=== PATIENT | male | born 1960 | race Caucasian/White ===

== ENCOUNTER → 2019-01-20 | Outpatient (CLI) | payer BC ==
[~2019-01-20] MED LIST: IOHEXOL 350 MG/ML 100ML IJ ONE
--- NOTE | 2019-01-20 10:10 | NUR ---
[facility] PT ARRIVED AT [facility] ALERT ORIENTED 0 DISTRESS V/S OBTAINED
--- NOTE | 2019-01-20 10:10 | NUR ---
IV insertion IV access obtained, via clean sterile technique by inserting 20 gauge catheter at after attempt(s). IV secured properly. No trauma to site. Patient tolerated procedure well.
--- NOTE | 2019-01-20 10:10 | NUR ---
Pre-Op Discharge Summary: See e-MAR for any medications given for this visit. Pre-op orders received and carried out per of EKG, LABS and chest xrays. Patient given a copy of EKG with instructions to go to [facility] out patient for further follow up care. Addendum: 01/20/19 at 1211 by NEDRA HARRISON RN RN [facility] PT DISCHARGED AT 1140
== END | disposition home or self-care (01) ==
LOC: Rad HDHVI 09:55
PROVIDERS: ATTEND Internal Medicine
DX: R94.4 Abnormal results of kidney function studies (principal)
CPT/HCPCS: 36415; 74177; 82565; G0463; Q9967

== ENCOUNTER 2019-04-28 23:35 | Emergency (ER) | payer BC ==
[~2019-04-28] VITALS: Ht 175.3 cm; Wt 71.7 kg
[2019-04-29] MEDS ORDERED: ACCU-CHEK COMFORT CURVE STRIP VI ONE
[2019-04-29 00:11] LABS: Basophils # (auto) 0 uL; Basophils % (auto) 0.3 % (0.0-2.0); Eosinophils # (auto) 0.1 uL; Eosinophils % (auto) 1.2 % (0.0-7.0); Hematocrit 37.2 % (41.0-53.0); Hemoglobin 12.7 g/dL (13.5-17.5); Lymphocytes # (auto) 0.8 uL; Lymphocytes % (auto) 14.1 % (10.0-50.0); Mean Corpuscular Hemoglobin 32.6 pg (28.0-32.0); Mean Corpuscular Hgb Conc. 34.2 g/dL (32.0-36.0); Mean Corpuscular Volume 95.3 fL (80.0-100.0); Monocytes # (auto) 0.5 uL; Neutrophils % (auto) 75.4 % (37.0-80.0); Platelet Count (auto) 165 10^3/uL (140-450); Red Blood Cells 3.91 10^6/uL (4.5-5.90); Red Cell Distribution Width 14.4 % (11.8-14.3); White Blood Cell 5.3 10^3/uL (4.4-10.8)
[2019-04-29 00:29] LABS: Alanine Aminotransferase 303 U/L (16-61); Albumin 2.8 g/dL (3.4-5.0); Anion Gap 10 (5-15); Aspartate Aminotransferase 351 U/L (15-37); BUN/Creatinine Ratio 7.3; Blood Urea Nitrogen 9 mg/dL (7-18); Calcium 8.3 mg/dL (8.5-10.1); Carbon Dioxide 27 mmol/L (21-32); Chloride 100 mmol/L (98-107); GFR African American 77 mL/min; GFR Non-African American 64 mL/min; Glucose 111 mg/dL (74-106); Potassium 3.8 mmol/L (3.5-5.1); Sodium 137 mmol/L (136-145)
[2019-04-29 00:32] LABS: Alkaline Phosphatase 261 U/L (45-117); Bilirubin, Total 0.8 mg/dL (0.2-1.0); Total Protein 7.2 g/dL (6.4-8.2)
[2019-04-29 01:17] LABS: INR 0.95 (0.9-1.15); Partial Thromboplastin Time 26.6 sec (23.64-32.05)
[2019-04-29 03:25] LABS: Urine Bacteria FEW /hpf (None Seen); Urine Blood TRACE /uL (Negative); Urine Specific Gravity 1.005 (1.001-1.035); Urine WBC 1 /hpf (0 - 3)
[2019-04-29 06:20] VITALS: BP 138/80
== END 2019-04-29 06:34 | disposition left against medical advice (07) ==
LOC: EDBD 23:35 → ER 23:42
DX: K63.1 Perforation of intestine (nontraumatic) (principal); Z53.29 Procedure and treatment not carried out because of patient's decision for other reasons
CPT/HCPCS: 36415; 70450; 71250; 74176; 80053; 80320; 81001; 82962; 84484; 85025; 85610; 85730; 86850; 86900; 86901; 86920; 93005; 94761